=== PATIENT | female | born 1990 | race Caucasian/White ===

== ENCOUNTER → 2022-02-13 09:16 | Outpatient (CLI) | payer OTHER, SELFPAY ==
--- NOTE | 2022-02-13 09:20 | DI.US.S_ITS ---
PROCEDURE: US OB >= 14 WEEKS FETUS INDICATIONS: 20 WEEK ANATOMY SCAN OUTSIDE/PRIOR DATING DATA: Last menstrual period (LMP): September 27, 2021 LMP-based estimated date of delivery (TIMOTHY): July 04, 2022 First dating scan (date and location): February 13, 2022 Estimated date of delivery (TIMOTHY) from first dating scan: June 30, 2022 The calculations are made using the ultrasound TIMOTHY of June 30, 2022 TECHNIQUE: Real-time scanning was performed of the fetus, with image documentation and biometric measurements. Endovaginal scanning: Performed COMPARISON: None. FINDINGS: General: A single living intrauterine gestation is present. Presentation: Breech Placenta: Placental position is anterior, without previa. Amniotic fluid index: 10.6 cm, normal range is 5-24 cm. heart rate: 133 beats per minute. Maternal cervical canal: Closed and 3.8 cm long. Normal lower limit is 2.5 cm. biometrics: Biparietal diameter: 20 weeks 0 days Head circumference: 20 weeks 2 days Abdominal circumference: 20 weeks 5 days Femur length: 20 weeks 4 days Clinically estimated gestational age: 19 weeks 6 days Composite gestational age from present scan: 20 weeks 3 days Estimated weight and percentile: 365 grams; 85th percentile Anatomic survey: Neuro: Ventricles are non-dilated at less than 10 mm. Cisterna magna is normal at 3-11 mm. Cerebellum is normal in size and morphology. Nuchal skin fold: Normal at less than 6 mm between 14-21 weeks gestational age. Face: Nose and lips, facial profile are normal. Spine: No evidence for spina bifida. Heart: 4-chambered heart is present, with normal ventricular outflow tracts. Diaphragm: Diaphragm is intact. Stomach: Left-sided stomach is present. Kidneys: No hydronephrosis. Normal is less than 5 mm in 2nd trimester, less than 7 mm in 3rd trimester. Cord: 3-vessel cord has orthotopic insertion. Bladder: Normal in size. Extremities: All 4 extremities identified. IMPRESSION: 1. Single living intrauterine with ultrasound estimated gestational age of 20 weeks 3 days corresponding to ultrasound TIMOTHY of June 30, 2022. 2. Normal anatomic survey. Dictated by: Migdalia Otto MD, PhD on 02/13/2022 at 12:03 Approved by: Migdalia Otto MD, PhD on 02/13/2022 at 12:06
== END ==
PROVIDERS: PCP Family Medicine; Referring Provider Nurse Practitioner Obstetrics & Gynecology; Visit Provider Nurse Practitioner Obstetrics & Gynecology
DX: Z34.92 Encounter for supervision of normal pregnancy, unspecified, second trimester (principal); Z3A.20 20 weeks gestation of pregnancy
CPT/HCPCS: 76811

== ENCOUNTER 2022-07-04 08:23 | Inpatient (IN) | payer OTHER, SELFPAY ==
--- NOTE | 2022-07-04 09:14 | P.HPOB_ITS ---
OB HPI Date/Time Date of admission: 07/04/22 Date Patient Seen: 07/04/22 Time Patient Seen: 08:30 History of Present Condition Chief complaint: OBS OF LABOR : 1 Para: 0 Estimated Date of Delivery: 07/04/22 Estimated Gestational Age (weeks): 40.0 Narrative: Mariah Lucas is a 31 year old female @ 40wks by LMP and early US who presents for evaluation of labor. Has been albert all night, contractions every 3 minutes. No VB or LOF. Desires low intervention . Declines SL IV, aware of recommendation. is present and supportive. Uncomplicated PN care w/ CNM. Comments: VS: BP 132/89, HR 93bpm, T 36.6C Temporal History of Present care: good care, initiated at week # (8), number of visits (10) and pounds weight gain (33) Dating criteria: LMP confirmed by 1st trimester US Ultrasounds: normal mid trimester US Obstetrical complications: none Medical complications: none Preadmission Labs Blood type: O (+) positive -: Antibody screen: negative, GBS status: negative, HBsAG: negative, HIV: negative and RPR/VDLR: negative -: Chlamydia screen: not detected and Gonorrhea screen: not detected -: Rubella: immune and Varicella: not immune HCT: 36.2 HCAB: negative PAP: Normal 1 hr GTT: 80 Evaluation Evaluation Baseline heart rate: 135 Variability: Moderate (11-25) monitor accelerations: Present Monitor Decelerations: Absent Contraction Frequency (minutes): 3 Uterine Contraction Intensity: Strong/Firm Status: Category l Dilation (cm): 5 Effacement (%): 90 Dilation: >/=5 cm Effacement: >/=80% station: -1 Position of cervix: posterior Consistency: soft Parrish score: 10 PFSH Medical History Contraception management [place] Family History Mother No problems noted. Father No problems noted. Grandfather Coronary artery disease Social History Smoking Status: Never smoker alcohol intake: current substance use type: does not use Meds Home Medications and Allergies Allergies Allergy/AdvReac Type Severity Reaction Status Date / Time No Known Drug Allergies Allergy Unverified 08/01/20 11:51 Review of Systems Review of Systems ROS: Yes unobtainable due to mental status OB Exam Resp Effort & Inspection: normal respiratory effort and able to speak in complete sentences Auscultation: clear to auscultation bilaterally Cardio Rate: regular rate Rhythm: regular rhythm Heart Sounds: S1 normal and S2 normal Presentation: vertex Assessment and Plan Assessment and Plan Assessment and Plan narrative: A: Term nullipara active labor No indication for GBS prophylaxis Cat I FHR P: Admit, routine orders. May switch to IA. Labor support PRN. Encouraged her to call in her senior supplier quality engineer. Reassess in 4 hours or sooner, PRN.
[2022-07-04 09:43] LABS: Add Manual Diff / Slide Review NO; Basophils Absolute Auto 0 /uL (0-100); Basophils Percent Auto 0.4 % (0-2); Eosinophils Absolute Auto 0 /uL (0-450); Hematocrit 39.9 % (36-46); Hemoglobin 13.1 g/dL (12.0-16.0); Lymphocytes Absolute Auto 1500 /uL (1100-4500); Lymphocytes Percent Auto 11.9 % (25-40); Mean Corpuscular Hemoglobin 28.9 PG (26-34); Mean Corpuscular Volume 87.6 fL (80-100); Monocytes Absolute Auto 700 /uL (0-900); Monocytes Percent Auto 5.6 % (3-14); Neutrophils Absolute Auto 10500 /uL (1500-7000); Neutrophils Percent Auto 82.1 % (50-75); Platelet Count 349 X10^3/uL (150-400); Red Blood Cell Count 4.55 X10^6/uL (4.0-5.2); Red Cell Distribution Width 13.2 % (11.6-14.8); White Blood Cell Count 12.7 X10^3/uL (4.5-11.0)
[2022-07-04 09:45] VITALS: BP 138/89
[2022-07-04 10:07] LABS: COVID19 -Nasal RAPID Negative (Negative)
--- NOTE | 2022-07-04 11:58 | PM.OBPNLAB ---
Date/Time Date Patient Seen: 07/04/22 Time Patient Seen: 11:58 Pain Control Pain control: tolerating well Pelvic Exam Dilation (cm): 5 Effacement (%): 90 station: -1 Amniotic membrane status: Intact Comments: CE deferred at patient request Contractions Contractions on admission: regular Monitor mode: None Pitocin rate (mU/min): 0 Contraction frequency (min): 3 Contraction duration (min): 1 Contraction intensity: Strong/Firm Status status: Category l (reassuring by IA) Heart Rate Baseline: 140 Assessment and Plan Assessment: active labor Plan: continuous present management
--- NOTE | 2022-07-04 17:37 | PM.OBPNLAB ---
Date/Time Date Patient Seen: 07/04/22 Time Patient Seen: 17:37 Pain Control Pain control: tolerating well (breathing through strong contractions) Comments: Has been moving, trying lots of different positions, but mainly laboring upright, standing during contractions. Has been able to take in PO fluids, but unable to eat anything. Rare emesis. Coping well with continuous retail assistant manager support, though very tired. Partner present and supportive. Pelvic Exam Dilation (cm): 7 Effacement (%): 90 station: -1 Amniotic membrane status: Intact Comments: CE @ 1315 was 7/90%/-1, BBOW, OP presentation. Contractions Monitor mode: None Pitocin rate (mU/min): 0 Contraction frequency (min): 3 Contraction duration (min): 1 Contraction intensity: Strong/Firm Status status: Category l (reassuring by IA) Heart Rate Baseline: 145 Comments: Reassuring by IA Assessment and Plan Assessment: active labor and other ( malpresentation) Plan: continuous present management Comments: Encouraged Mile's circuit for the next 90 minutes. Discussed option for AROM to augment labor. Reassess in 2 hours or sooner, PRN.
[2022-07-04] MEDS: LACTATED RINGERS 1,000 ML 100 ML IV (22:10)
--- NOTE | 2022-07-04 22:37 | PM.OBPNLAB ---
Date/Time Date Patient Seen: 07/04/22 Time Patient Seen: 19:40 Pain Control Pain control: tolerating well Comments: Has been laboring in the tub, working harder, disappointed by lack of progress. Consents to AROM if minimal cervical change at this exam. Pelvic Exam Dilation (cm): 8 Effacement (%): 90 station: -1 Amniotic membrane status: Ruptured (AROM) Comments: large amount of clear fluid Contractions Monitor mode: None Contraction frequency (min): 3 Contraction duration (min): 1 Contraction intensity: Strong/Firm Status status: Category l (reassuring by IA) Heart Rate Baseline: 140 Assessment and Plan Assessment: active labor (slow) Plan: begin patient augmentation Comments: Counseled on expectation for increased intensity after AROM. Discussed pain relief option, at patient's request: NO2, epidural, IV narcotics. Patient is planning to labor 1 more hour, then consider a pain relief option. Reassess in 2-4 hours or sooner, PRN.
[2022-07-05] MEDS: OXYTOCIN PREMIX 30 UNIT/500 ML PLAST..BAG IV (02:40)
--- NOTE | 2022-07-05 03:31 | PM.OBPRVD ---
Labor & Delivery Delivery date: 07/05/22 Intrapartal Events: None Cervical ripening method: none Induction method: none Delivery augmentation: rupture of membranes and pitocin Delivery monitor: external FHT and external uterine Route of delivery: Episiotomy description: None L&D Laceration Description: None Quantitative Blood Loss: 25 Anesthesia Type: Epidural Narrative: Mariah labored well with an epidural. Pushing initiated at C/C/+2. Contractions spaced during second stage and pitocin augmentation was initiated. Pushing was disorganized, then improved with coaching and encouragement. NSVB of a vigorous baby girl in TO position over an intact vagina and perineum. There was no nuchal cord and the shoulders delivered easily. was placed on maternal abdomen by CNM and FOB. AMTSL was declined by patient. After cessation of pulsation, the cord was double clamped by CNM and cut by FOB. Cord blood sample was collected. Gentle cord traction and single maternal push led to spontaneous, Schultze delivery of an apparently intact placenta, membranes and 3VC. Fundus immediately firm and bleeding minimal. QBL 25mL. Both mother and baby stable and skin to skin as I left the room. Baby 1: Infant gender: Female Presentation: vertex Position: Right Occiput Anterior Placenta delivery description: Spontaneous Cord Vessel Description: 3 Vessels score (1 min): 9 score (5 min): 9 weight: 3.315 kg Plan for aftercare: Routine care
[2022-07-05] MEDS: IBUPROFEN 600 MG TABLET PO (04:18)
[2022-07-05] MEDS: ACETAMINOPHEN 325 MG TABLET 650 MG PO (04:19)
[2022-07-05] MEDS: DERMOPLAST SPRAY 20% 60 ML 1 SPRAY TOP (04:20)
[2022-07-05] MEDS: FENT 2MCG/ML BUPIV 0.125% EPI 200 MCG/100 ML PLAST..BAG 8 MCG EPIDURAL (07:54)
--- NOTE | 2022-07-05 09:35 | P.DS_ITS ---
Discharge Providers Provider Date of admission: 07/04/22 08:23 Discharge Date: 07/05/22 Primary care physician: Tevin Villalta DO Consults: 07/06/22 03:28 Consult to Construction Craft Laborer Routine Comment: Discharge provider: Katey Barragan CNM Summary Hospital Course Date Patient Seen: 07/05/22 Time Patient Seen: 09:35 Diagnoses: O80 Hospital Course: 6hrs s/p NSVB w/ no lacerations. Voiding and ambulating independently. Tolerating a general diet. Is working with RN and IBCLC on . Large amounts of colostrum hand expressed and cup fed to baby, but has tethered oral tissue and difficulty with latch. Vaginal bleeding is light without clots. Pain is minimal. Desires immediate discharge from the hospital. Peripartum Data Infant Delivery Method: Natural Vaginal Laceration Description: None Episiotomy description: None complications: none [place] 1: Gender: Female Disposition of : home Discharge Diagnosis (1) Encounter for full-term uncomplicated delivery: Start Date: 07/05/22 Start Time: 03:07 Status: Acute Status at Discharge Cognitive/behavioral status at discharge: oriented and calm Functional status at discharge: independent ambulation Overall status at discharge: patient is back to baseline Time Spent with Patient Time attestation: Total time spent providing and/or coordinating discharge services: Time spent: Less than 30 minutes Specific discharge activities: Objective Labs Result Diagrams: 07/04/22 08:45 Labs: Laboratory Results - last 24 hr 07/04/22 07/04/22 07/04/22 08:45 08:45 09:23 WBC 12.7 H RBC 4.55 Hgb 13.1 Hct 39.9 MCV 87.6 MCH 28.9 MCHC 33.0 RDW 13.2 Plt Count 349 Neut % (Auto) 82.1 H Lymph % (Auto) 11.9 L [place] % (Auto) 5.6 Eos % (Auto) 0.0 L Baso % (Auto) 0.4 Neut # (Auto) 15269 H Lymph # (Auto) 1500 [place] # (Auto) 700 Eos # (Auto) 0 Baso # (Auto) 0 SARS-CoV-2 (PCR) Negative Blood Type O Positive Antibody Screen Negative Exam Vital Signs (past 8 hours): BP 112/65, HR 81bpm, T 36.5C Other: Fundus firm @ u-1, lochia light, no clots. Discharge Plan Discharge Plan Patient Disposition: Home Discharge orders & Medications Prescriptions: New ibuprofen 600 mg Tablet 600 mg PO Q6HR PRN (Reason: Pain, Mild (1-3)) 14 Days Qty: 40 0RF No Action No Known Home Medications Follow up/Referrals: Tevin Villalta, [Primary Care Provider] - Katey Barragan CNM [[facility] [employer]] - (Follow-up 07/18/22 @ 1145 by Telehealth Follow-up 08/15/22 @ 1145 in office) Diet/Activity/Treatments Diet: Regular Activity: pelvic rest x 6 weeks Skin/Wound/Dressing Care Report to your healthcare provider any signs of infection, such as:: chills, fever, increased pain, unusual drainage and unusual redness Visit Report/Discharge Packet Instructions: DI for Depression Discharge Data Primary Care Provider: Tevin Villalta
== END 2022-07-05 14:15 | disposition home or self-care (01) | DRG 807 ==
PROVIDERS: Admitting Provider Nurse Practitioner Obstetrics & Gynecology; PCP Family Medicine; Referring Provider Nurse Practitioner Obstetrics & Gynecology; Visit Provider Nurse Practitioner Obstetrics & Gynecology
DX: O48.0 Post-term pregnancy (principal); Z37.0 Single live birth; Z3A.40 40 weeks gestation of pregnancy; Z20.822 Contact with and (suspected) exposure to COVID-19
CPT/HCPCS: 01967; 36415; 59050; 85025; 86850; 86900; 86901; 87635; C9803; G0379; J2590

== ENCOUNTER → 2024-08-18 17:25 | Outpatient (CLI) | payer OTHER, SELFPAY ==
[2024-08-18 17:48] LABS: Hematocrit 41.3 % (36-46); Hemoglobin 13.6 g/dL (12.0-16.0); Mean Corpuscular HGB Conc 32.8 % (30-36); Mean Corpuscular Hemoglobin 28.9 PG (26-34); Mean Corpuscular Volume 88.2 fL (80-100); Platelet Count 359 X10^3/uL (150-400); Red Blood Cell Count 4.69 X10^6/uL (4.0-5.2); Red Cell Distribution Width 12.6 % (11.6-14.8); White Blood Cell Count 7.9 X10^3/uL (4.5-11.0)
[2024-08-18 18:18] LABS: BUN Creatinine Ratio 21.6 (6-22); Blood Urea Nitrogen 16 mg/dL (7-17); Calcium 9.6 mg/dL (8.4-10.2); Carbon Dioxide 25 mmol/L (22-32); Chloride 103 mmol/L (98-107); Estimated Glomerular Filt Rate > 60 mL/min (>60); Glucose 92 mg/dL (70-100); HEMOLYSIS < 15 (0-50); Sodium 138 mmol/L (137-145)
[2024-08-18 18:35] LABS: HCG Quantitative /Beta subunit < 2.39 mIU/mL; Prolactin 9.4 ng/mL (3.0-18.6); Vitamin D 25 Hydroxy (D3) 39.3 ng/mL (30.0-100.0)
[2024-08-18 18:50] LABS: TSH w/ Reflex to FT4 3.87 uIU/mL (0.47-4.68)
== END ==
LOC: LAB 17:26
PROVIDERS: PCP Nurse Practitioner Family; Referring Provider Nurse Practitioner Family; Visit Provider Nurse Practitioner Family
DX: R53.83 Other fatigue (principal); N64.52 Nipple discharge; N91.2 Amenorrhea, unspecified
CPT/HCPCS: 36415; 80048; 82306; 84146; 84443; 84702; 85027